=== PATIENT | male | born 1980 | race American Indian/Alaskan Native ===

== ENCOUNTER 2020-07-16 16:58 | Emergency (ER) | payer BC, MEDICARE ==
[~2020-07-16] VITALS: Ht 172.7 cm; Wt 63.6 kg
[~2020-07-16 16:58] MED LIST: AMOXICILLIN 8751 TAB PO; ATIVAN; BUSPAR; BUSPAR10 MG PO; DIFLUCAN200 MG PO; LIDOCAINE HC20 MG/M2 PO; LORTAB 5/500 501 TAB PO; MECLIZINE25 MG PO; NO HOME MEDICATIONS; NORCO 325 MG-51 TAB PO; NYSTATIN OR100 MU/ML PO; PROAIR HFA0.09 MG/AC IH; TRAZODONE50 MG PO
[2020-07-16 17:04] VITALS: TEMP 98.1
[2020-07-16] MEDS ORDERED: NAPROSYN500 MG PO (17:45)
[2020-07-16] MEDS ORDERED: PERCOCET 325 MG1 TA2 PO (17:45)
[2020-07-16] MEDS ORDERED: ATARAX50 MG PO (17:45)
[2020-07-16 17:52] VITALS: BP 119/77; PULSE 76
== END 2020-07-16 17:52 | disposition home or self-care (01) ==
LOC: COL.ER 16:58
DX: M79.602 Pain in left arm (principal); R53.81 Other malaise; R21 Rash and other nonspecific skin eruption; T50.A95A Adverse effect of other bacterial vaccines, initial encounter; F17.210 Nicotine dependence, cigarettes, uncomplicated

== ENCOUNTER 2020-08-09 10:51 | Emergency (ER) | payer BC, MEDICARE ==
[~2020-08-09] VITALS: Ht 172.7 cm; Wt 63.6 kg
[~2020-08-09 10:51] MED LIST changes: +ATARAX50 MG PO; +NAPROSYN500 MG PO; +PERCOCET 325 MG1 TA2 PO
[2020-08-09 10:55] VITALS: TEMP 97.8
[2020-08-09 12:16] LABS: ALBUMIN 3.8 gm/dL (3.5-5.0); BILIRUBIN,TOTAL 0.3 mg/dL (0.0-1.0); C-REACTIVE PROTEIN 1.9 mg/dL (0.0-0.9); CALCIUM 8.6 mg/dL (8.4-10.2); CREATININE, serum 0.74 (0.66-1.25); POTASSIUM 3.7 mmol/L (3.4-5.0); TOTAL PROTEIN 8.3 gm/dL (6.4-8.2)
[2020-08-09 12:18] LABS: BASO % 0.5 % (0.0-2.0); EOS # 0.3 (0.0-0.7); EOS % 5.7 % (0-4.0); GRAN # 2.3 (1.4-6.5); GRAN % 53.2 % (42.2-75.2); HEMATOCRIT 39.9 % (42.0-52.0); HEMOGLOBIN 13.2 g/dl (13.5-18.0); LYMPH # 1.3 (1.2-3.4); LYMPH % 28.7 % (20.0-51.0); MEAN CELL VOLUME 95 fl (80.0-100.0); MEAN CORPUSCULAR HEMOGLOBIN 31 pg (27.0-31.0); MEAN CORPUSCULAR HGB CONC 33 g/dl (33.0-37.0); MEAN PLATELET VOLUME 10.4 fl (7.4-10.4); MONO # 0.5 (0.1-0.6); MONO % 11.4 % (1.7-9.3); PLATELET COUNT 234 K/mm3 (130-400); REDCELL DISTRIBUTION WIDTH-CV 13.1 % (11.5-14.5)
[2020-08-09] MEDS ORDERED: BACTRIM DS 8001 TAB PO (13:10)
[2020-08-09] MEDS ORDERED: CEPHALEXIN500 M1 PO (13:10)
[2020-08-09 13:21] VITALS: BP 119/79; PULSE 80
== END 2020-08-09 13:21 | disposition home or self-care (01) ==
LOC: COL.ER 10:51
PROVIDERS: Nurse Practitioner
DX: L03.115 Cellulitis of right lower limb (principal)

== ENCOUNTER 2021-09-20 21:01 | Emergency (ER) | payer MEDICARE ==
[~2021-09-20] VITALS: Ht 177.8 cm; Wt 61.4 kg
[~2021-09-20 21:01] MED LIST changes: +BACTRIM DS 8001 TAB PO; +CEPHALEXIN500 M1 PO
[2021-09-20 21:10] VITALS: BP 123/81; PULSE 71; TEMP 98.2
[2021-09-20] MEDS ORDERED: AMOXICILLIN 8751 TAB PO (21:36)
== END 2021-09-20 21:49 | disposition home or self-care (01) ==
LOC: COL.ER 21:01
DX: S02.5XXA Fracture of tooth (traumatic), initial encounter for closed fracture (principal); K05.30 Chronic periodontitis, unspecified; F17.200 Nicotine dependence, unspecified, uncomplicated; X58.XXXA Exposure to other specified factors, initial encounter

== ENCOUNTER 2023-04-30 01:19 | Emergency (ER) | payer MEDICARE ==
[~2023-04-30] VITALS: Ht 172.7 cm; Wt 54.5 kg
[2023-04-30 01:27] VITALS: TEMP 97.8
[2023-04-30 02:01] LABS: BASO % 0.2 % (0.0-2.0); EOS # 0.2 K/mm3 (0.0-0.7); EOS % 2.1 % (0.0-4.0); GRAN % 48.4 % (42.2-75.2); HEMATOCRIT 37.9 % (42.0-52.0); HEMOGLOBIN 13.5 g/dl (13.5-18.0); LYMPH # 3.3 K/mm3 (1.2-3.4); MEAN CELL VOLUME 118 fl (80.0-100.0); MEAN CORPUSCULAR HEMOGLOBIN 42 pg (27-31); MEAN CORPUSCULAR HGB CONC 36 g/dl (33.0-37.0); MEAN PLATELET VOLUME 9.2 fl (7.4-10.4); MONO # 0.7 K/mm3 (0.1-0.6); MONO % 8.7 % (1.7-9.3); PLATELET COUNT 298 K/mm3 (130-400); RED BLOOD COUNT 3.21 M/mm3 (4.20-5.60); REDCELL DISTRIBUTION WIDTH-CV 13.2 % (11.5-14.5)
[2023-04-30 02:11] LABS: PROTHROMBIN TIME 10.7 SECONDS (9.7-12.8)
[2023-04-30 02:14] LABS: PARTIAL THROMBOPLASTIN TIME 24.7 SECONDS (26.0-37.0)
[2023-04-30 02:18] LABS: ALANINE AMINOTRANSFERASE 20 U/L (0-55); ALBUMIN 3.7 gm/dL (3.5-5.0); ALCOHOL(ethanol),MEDICAL < 10 mg/dL (0-10); ALKALINE PHOSPHATASE 82 U/L (40-150); ANION GAP 11 mmol/L (7-16); AST,SGOT 20 U/L (5-34); BILIRUBIN,TOTAL 0.2 mg/dL (0.2-1.2); BLOOD UREA NITROGEN 10 mg/dL (9-21); CARBON DIOXIDE 19 mmol/L (22-29); CHLORIDE 108 mmol/L (98-107); CREATININE, serum 1.11 mg/dL (0.72-1.25); GLUCOSE 96 mg/dL (70-99); POTASSIUM 3.8 mmol/L (3.5-4.5); SODIUM 138 mmol/L (136-145); TOTAL PROTEIN 6.8 gm/dL (6.2-8.1)
[2023-04-30 02:28] LABS: D-DIMER < 200.00 ng/mLDDu (200-230)
[2023-04-30 02:33] LABS: TROPONIN-I < 0.010 ng/mL (0.00-0.033)
[2023-04-30 03:01] LABS: TRICYCLIC ANTIDEPRESS URINE NEGATIVE
[2023-04-30 05:09] VITALS: BP 110/72; PULSE 89
== END 2023-04-30 05:20 | disposition home or self-care (01) ==
LOC: COL.ER 01:19
PROVIDERS: Emergency Medicine
DX: S01.01XA Laceration without foreign body of scalp, initial encounter (principal); R55 Syncope and collapse; F17.210 Nicotine dependence, cigarettes, uncomplicated; B20 Human immunodeficiency virus [HIV] disease; Z79.899 Other long term (current) drug therapy; W22.8XXA Striking against or struck by other objects, initial encounter

== ENCOUNTER 2023-05-20 01:00 | Emergency (ER) | payer MEDICARE ==
[~2023-05-20] VITALS: Ht 172.7 cm; Wt 54.5 kg
[2023-05-20 01:03] VITALS: TEMP 97.3
[2023-05-20] MEDS ORDERED: NS 1,000 ML IV ONE ×2 (01:30→03:00)
[2023-05-20] MEDS ORDERED: LORazepam 2 MG/ML 1 ML VIAL IV ONE (01:30)
[2023-05-20 01:37] LABS: BASO % 0.5 % (0.0-2.0); EOS # 0.1 K/mm3 (0.0-0.7); EOS % 0.8 % (0.0-4.0); GRAN # 3.2 K/mm3 (1.4-6.5); GRAN % 42.6 % (42.2-75.2); HEMOGLOBIN 14.3 g/dl (13.5-18.0); LYMPH # 3.3 K/mm3 (1.2-3.4); LYMPH % 43.7 % (20.0-51.0); MEAN CELL VOLUME 115 fl (80.0-100.0); MEAN CORPUSCULAR HEMOGLOBIN 42 pg (27-31); MEAN CORPUSCULAR HGB CONC 37 g/dl (33.0-37.0); MEAN PLATELET VOLUME 9.2 fl (7.4-10.4); MONO # 0.9 K/mm3 (0.1-0.6); MONO % 12.1 % (1.7-9.3); PLATELET COUNT 302 K/mm3 (130-400); REDCELL DISTRIBUTION WIDTH-CV 12.9 % (11.5-14.5)
[2023-05-20] MEDS ORDERED: Ondansetron 4 MG/2 ML VIAL IV ONE (01:45)
[2023-05-20 01:48] LABS: ACETONE,SERUM NEGATIVE
[2023-05-20 01:57] LABS: ALANINE AMINOTRANSFERASE 15 U/L (0-55); ALBUMIN 4.5 gm/dL (3.5-5.0); ALKALINE PHOSPHATASE 85 U/L (40-150); ANION GAP 14 mmol/L (7-16); AST,SGOT 19 U/L (5-34); BLOOD UREA NITROGEN 15 mg/dL (9-21); CALCIUM 9.6 mg/dL (8.4-10.2); CARBON DIOXIDE 21 mmol/L (22-29); CHLORIDE 104 mmol/L (98-107); CREATININE, serum 1.31 mg/dL (0.72-1.25); GLUCOSE 106 mg/dL (70-99); LIPASE 26 U/L (8-78); SODIUM 139 mmol/L (136-145); TOTAL PROTEIN 7.6 gm/dL (6.2-8.1)
[2023-05-20 01:58] LABS: SALICYLATE < 5.0 mg/dL (15.0-30.0)
[2023-05-20 01:59] LABS: ALCOHOL(ethanol),MEDICAL < 10 mg/dL (0-10)
[2023-05-20 02:08] LABS: TROPONIN-I < 0.010 ng/mL (0.00-0.033)
[2023-05-20 02:09] LABS: TRICYCLIC ANTIDEPRESS URINE NEGATIVE (NEGATIVE)
[2023-05-20 02:12] LABS: INR 1.1 (0.8-3.0); PROTHROMBIN TIME 12.1 SECONDS (9.7-12.8)
[2023-05-20 02:16] LABS: D-DIMER < 200.00 ng/mLDDu (200-230)
[2023-05-20 02:18] LABS: BILIRUBIN,TOTAL 0.7 mg/dL (0.2-1.2)
[2023-05-20 04:55] VITALS: BP 129/55; PULSE 107
== END 2023-05-20 04:55 | disposition home or self-care (01) ==
LOC: COL.ER 01:00
PROVIDERS: Emergency Medicine
DX: R07.9 Chest pain, unspecified (principal); E87.6 Hypokalemia; R94.4 Abnormal results of kidney function studies; F15.90 Other stimulant use, unspecified, uncomplicated; F17.210 Nicotine dependence, cigarettes, uncomplicated; Z21 Asymptomatic human immunodeficiency virus [HIV] infection status
CPT/HCPCS: J2060; J2405; J7030